=== PATIENT | male | born 1965 | race African-American/Black ===

== ENCOUNTER 2017-01-06 15:50 | Emergency (ER) | payer SELFPAY ==
[~2017-01-06] VITALS: Ht 188 cm; Wt 150.0 kg
[~2017-01-06 15:50] MED LIST: AMLO10TA80 PO; ASPI-1159 PO; LISI40TA4 PO
[2017-01-06] MEDS ORDERED: ASPIRIN 81MG TABLET PO STA (16:46)
[2017-01-06 17:23] LABS: CARBON DIOXIDE 31 mEq/L (21-32); CHLORIDE 101 mEq/L (98-107)
[2017-01-06 17:24] LABS: BASOPHILS % 0.4 % (0.0-2.0); D-DIMER 1.53 mg/L FEU (<0.50); EOSINOPHILS % 1.6 % (0.0-5.0); HEMATOCRIT. 43.7 % (42.0-52.0); HEMOGLOBIN. 14.8 g/dL (14.0-18.0); LYMPHOCYTES % 19.9 % (20.0-50.0); MEAN CORPUSCULAR HEMOGLOBIN 29.3 pg (28.0-32.0); MEAN CORPUSCULAR VOLUME 86.2 fL (80.0-94.0); MEAN PLATELET VOLUME 10.7 fl (7.4-10.4); MONOCYTES % 7.6 % (2.0-8.0); NEUTROPHILS % 70.5 % (40.0-76.0); PARTIAL THROMBOPLASTIN TIME 24.3 sec (23.4-31.0); PLATELET 185 x1000/uL (130-400); PROTHROMBIN TIME 10.8 sec (9.4-11.6); RED BLOOD CELL COUNT 5.07 mill/uL (4.7-6.1)
[2017-01-06 17:30] LABS: TROPONIN I < 0.02 ng/mL (0.00-0.04)
[2017-01-06] MEDS ORDERED: KETOROLAC 30MG/ML VIAL IV ONE (18:00)
[2017-01-06] MEDS ORDERED: IOHEXOL-350 100 ML BOTTLE ONE (19:56)
[2017-01-06] MEDS ORDERED: ONDANSETRON HCL 4MG/2ML VIAL IV ONE (20:00)
[2017-01-06] MEDS ORDERED: SODIUM CHLORIDE 0.9% 1,000 ML IV ONE (20:00)
[2017-01-06 21:40] VITALS: BP 152/99
== END 2017-01-06 21:45 | disposition home or self-care (01) ==
LOC: ER 16:25 → CANBEDREQ 22:25
DX: R07.9 Chest pain, unspecified (principal); I10 Essential (primary) hypertension; R42 Dizziness and giddiness; Z79.82 Long term (current) use of aspirin
CPT/HCPCS: 36415; 71010; 71275; 80053; 83690; 84484; 85025; 85379; 85610; 85730; 93005; 96361; 96374; 96375; 99285; J1885; J2405; J7030; Q9967; Z7610